=== PATIENT | female | born 1955 | race African-American/Black ===

== ENCOUNTER 2020-11-19 12:16 | Emergency (ER) | payer OTHER ==
[~2020-11-19] VITALS: Ht 172.7 cm; Wt 109.1 kg
--- NOTE | 2020-11-19 13:02 | RAD ---
XR ELBOW COMPLETE_RIGHT 3+ VIEWS Clinical indications: Reason: pain behind olecrannon after strike. Findings: A joint effusion is evident. In the setting of trauma, this is typically due to an occult radial head fracture. Actual fracture line is not evident radiographically. Alignment is normal. No l ytic process is seen. IMPRESSION: Right elbow joint effusion indicative of an occult radial head fracture in the setting of trauma. Electronically signed by: Izaiah Martinez MD (11/19/2020 1:00 PM) [id number]
--- NOTE | 2020-11-19 13:33 | PHYS DOC ---
Past Medical History Past Medical History: Diabetes-Type II Past Surgical History: No Surgical History General Adult EDM: Chief Complaint: UPPER EXTREMITY PAIN HPI: HPI: Patient is a 65 year old female who presents with right elbow pain. Pain sta rted on Friday. She was sitting down in a chair and hit her arm hard on a coffee table next to the chair. Denies any other injuries. Pain was immediate and only worsened through the course of last night. She now has more difficulty moving her arm. Has pain with small range of motion of the elbow. Denies fever, chills. No skin breaks or tears over the area. No nausea, vomiting or other systemic symptoms. She is right-handed. Review of Systems: Review of Systems: Constitutional: Denies fever or chills. [] Eyes: Denies change in visual acuity. [] HENT: Denies nasal congestion or sore throat. [] Respiratory: Denies cough or shortness of breath. [] Cardiovascular: Denies chest pain or edema. [] GI: Denies abdominal pain, nausea, vomiting, bloody stools or diarrhea. [] : Denies dysuria. [] Musculoskeletal: Right elbow pain Integument: Denies rash. [] Neurologic: Denies headache, focal weakness or sensory changes. [] Endocrine: Denies polyuria or polydipsia. [] Lymphatic: Denies swollen glands. [] Psychiatric: Denies depression or anxiety. [] Heart Score: C/O Chest Pain: No Risk Factors: Risk Factors: DM, Current or recent (<one month) smoker, HTN, HLP, family history of CAD, obesity. Risk Scores: Score 0 - 3: 2.5% MACE over next 6 weeks - Discharge Home Score 4 - 6: 20.3% MACE over next 6 weeks - Admit for Clinical Observation Score 7 - 10: 72.7% MACE over next 6 weeks - Early Invasive Strategies Allergies: Allergies: Allergies Coded Allergies Type Severity Reaction Last Updated Verified No Known Drug Allergies 11/19/20 No Physical Exam: PE: Constitutional: Well developed, well nourished, no acute distress, non-toxic appearance. [] HENT: Normocephalic, atraumatic, bilateral external ears normal, oropharynx moist, no oral exudates, nose normal. [] Eyes: PERRLA, EOMI, conjunctiva normal, no discharge. [] Neck: Normal range of motion, no tenderness, supple, no stridor. [] Cardiovascular:Heart rate regular rhythm, no murmur [] Lungs & Thorax: Bilateral breath sounds clear to auscultation [] Abdomen: Bowel sounds normal, soft, no tenderness, no masses, no pulsatile masses. [] Skin: Warm, dry, no erythema, no rash. [] Back: No tenderness, no CVA tenderness. [] Extremities: Tender over the radial head and olecranon at the elbow. There is some swelling evident. No overlying erythema present. Range of motion of the elbow is severely limited due to pain. Neurologic: Alert and oriented X 3, normal motor function, normal sensory function, no focal deficits noted. [] Psychologic: Affect normal, judgement normal, mood normal. [] Current Patient Data: Vital Signs: Vital Signs Date Time Temp Pulse Resp B/P (MAP) Pulse Ox O2 Delivery O2 Flow Rate FiO2 11/19/20 12:25 99.2 97 18 142/97 (112) 96 Room Air 99.2 EKG: EKG: [] Radiology/Procedures: Radiology/Procedures: [id number]-fi-[id number] ultrasound showed evidence of a joint effusion in the elbow on the right. [] Impression: [facility] [address] [place], [place] [id number] IMAGING REPORT Signed PATIENT: MIC HOOD ACCOUNT: [id number] : 1955 LOCATION: ER AGE: 65 SEX: F EXAM STATUS: REG ER ORD. PHYSICIAN: DELMAR WILSON MD REASON: pain behind olecrannon after strike. PROCEDURE: ELBOW RIGHT 3V XR ELBOW COMPLETE_RIGHT 3+ VIEWS Clinical indications: Reason: pain behind olecrannon after strike. Findings: A joint effusion is evident. In the setting of trauma, this is typically due to an occult radial head fracture. Actual fracture line is not evident radiographically. Alignment is normal. No lytic process is seen. IMPRESSION: Right elbow joint effusion indicative of an occult radial head fracture in the setting of trauma. Electronically signed by: Bernadine Martinez MD (11/19/2020 1:00 PM) [id number] DICTATED and SIGNED BY: BERNADINE MARTINEZ MD DATE: 11/19/20 [id number] Course & Med Decision Making: Course & Med Decision Making Pertinent Labs and Imaging studies reviewed. (See chart for details) Patient is 65-year-old female who presents with right elbow pain after striking her elbow on a coffee table 2 days ago. She has limited range of motion, tenderness, and swelling over the elbow joint. Initially was concern for bursitis, but uveei-vi-[id number] ultrasound identified a joint effusion rather than a well-circumscribed bursa. X-ray confirmed a joint effusion. No fracture was identified, but radiology read indicates concern for an occult radial head fracture given the effusion. This pain occurred after a traumatic event, and she has no systemic symptoms to suggest a septic arthritis. Therefore, I agree occult fracture seems more likely than other non-traumatic causes of effusion. -- Discussed with the patient, explained that she likely has a fracture, but that if she develops fever, chills, vomiting, or other systemic symptoms she may need to be reevaluated. Otherwise a long-arm splint was placed along with a sling and the patient was given orthopedic follow-up. After splint application, cap refill and neurovascular status remained intact. [id number] Dragon Disclaimer: Dragon Disclaimer: This electronic medical record was generated, in whole or in part, using a voice recognition dictation system. Departure Departure Impression: Primary Impression: Effusion, right elbow Additional Impression: Radial head fracture, closed Disposition: 01 HOME / SELF CARE / HOMELESS Condition: STABLE Referrals: NON,STAFF (PCP) NEDRA JIMENES Jr. DO Call Dr. Jimenes's office tomorrow morning to schedule a follow-up appointment. Patient Instructions: Radial Head Fracture Additional Instructions: If you develop fever, chills, vomiting, or other systemic symptoms you need to return to the emergency department to be evaluated. There is a very small chance that this could be something other than a fracture, such as an infection of your elbow. DELMAR WILSON MD Nov 19, 2020 13:33
[2020-11-19 14:16] VITALS: BP 134/94
== END 2020-11-19 14:17 | disposition home or self-care (01) ==
LOC: ER 12:16
DX: S52.121A Displaced fracture of head of right radius, initial encounter for closed fracture (principal); M25.421 Effusion, right elbow; E11.9 Type 2 diabetes mellitus without complications; W22.03XA Walked into furniture, initial encounter; Y93.89 Activity, other specified; Y92.89 Other specified places as the place of occurrence of the external cause; Y99.8 Other external cause status
CPT/HCPCS: 29105; 73080; 99284; A4565